=== PATIENT | female | born 1975 | race Caucasian/White ===

== ENCOUNTER 2017-04-13 10:51 | Emergency (ER) | payer OTHER ==
--- NOTE | ~2017-04-13 | CT2 ---
[facility] A Service of [facility] & [facility] RADIOLOGY TEXT RESULTS PATIENT: DEBBY CARMONA LOCATION: SED : 79 UNIT #: [id number] AGE: [address]: Cesar Murray MD SEX: F ORDER DR: [id number] [address] [address] [id number] MR#: [id number] Acc #: [id number] NAME: DEBBY CARMONA. : 1975 SEX: F STUDY DATE/TIME: 04/13/2017 13:44 UNIT: SED ROOM: STUDY DESCRIPTION: CT Abd and Pelv W Cont Attending Physician: Cesar Murray M.D. Ordering Physician: Cesar Murray M.D. Primary Care Physician: Jessica Cortes M.D. MEDICAL IMAGING REPORT This report is preliminary unless electronic signature is present. EXAM CT of the abdomen and pelvis with contrast HISTORY Patient has difficulty urinating. Blood in the stool Wednesday. TECHNIQUE Axial CT images were obtained from dome of the diaphragm through symphysis pubis following administration of oral and intravenous contrast material. This CT exam was performed with one or more of the following radiation dose reduction techniques: automatic exposure control, adjustment of mA and/or kV according to patient size, and iterative reconstruction. FINDINGS Patient has some scarring versus atelectasis at the right lung base. Stomach and proximal small bowel are within normal limits as are the adrenal glands, pancreas, spleen and liver and gallbladder. Adrenal glands and kidneys appear normal. There is no evidence mechanical bowel obstruction. Appendix is not visualized but no dilated tubular structure is seen within the right lower quadrant to suggest acute appendicitis. No free fluid or adenopathy is seen within the pelvis. Ovaries appear unremarkable for a 41-year-old woman with the exception of what may be a hemorrhagic cyst on the right ovary measuring about 1.2 x 1.8 cm. This patient has a round mass within the endometrial canal. This certainly could reflect a pedunculated fibroid extending into the endometrial canal, however I would suggest further evaluation with pelvic ultrasound on a non-emergent outpatient basis. Review of bony windows does not demonstrate any aggressive osseous abnormalities. STS. [facility] A Service of [facility] & [facility] RADIOLOGY TEXT RESULTS PATIENT: DEBBY CARMONA LOCATION: SED : 79 UNIT #: [id number] AGE: [address]: Cesar Murray MD SEX: F ORDER DR: IMPRESSION 1. Round mass identified within the endometrial canal. This certainly could reflect a pedunculated fibroid, however I would suggest further evaluation with pelvic ultrasound on a non-emergent outpatient basis. 2. Probable hemorrhagic cyst on the right ovary. 3. The appendix is not visualized but I do not see a dilated tubular structure or soft tissue stranding within the right lower quadrant to suggest acute appendicitis. Dictated by... Pham Parra M.D. THIS IS AN ELECTRONICALLY VERIFIED REPORT Pham Parra M.D. at 04/14/2017 5:03 PM AFF/pcl TD: 04/13/2017 22:31 JOB #: [id number] MEDICAL IMAGING REPORT Page 1 of 1
[~2017-04-13 10:51] MED LIST: AMITRYPTYLINE PO; AMOXICILLIN PO; ANUSOL-HC25 MG/SUPP RC; BACTRIM DS TABL1 TA1 PO; BENTYL10 MG DOB; CELEXA PO; CIPRO PO; CIPRO250 MG PO; CLEOCIN PO; DICLOFENAC; DICLOFENAC PO; EC-NAPROSYN500 MG PO; FIORICET 50-321 EACH PO; FLAGYL PO; FLAGYL250 M1 PO; FLEXERIL10 M1 PO; HYDROXYZINE HCL50 MG PO; IBUPROFEN PO; IBUPROFEN600 MG PO; KEFLEX PO; KEFLEX500 MG PO; KLONOPIN0.5 MG PO; LORTAB 5/500 TA1 TA2 PO; LORTAB 7.5-5001 TAB PO; MAGIC MOUTH WASH; MAGIC MOUTHWASH MM; MEDROL DOSEPAK4 MG PO; MEDROL PO; MOBIC PO; MOBIC15 MG PO; MOTRIN600 MG PO; MULTI-DAY VITAM1 TAB PO; NAPROSYN500 MG PO; NAPROXEN; NAPROXEN PO; NAPROXEN375 MG PO; NICOTINE TRANSD14 MG EXT; NO MEDICATIONS; NORFLEX100 M1 PO; PHENERGAN PO; PHENERGAN12.5 MG PO; PHENERGAN25 MG PO; PRILOSEC20 MG PO; PROTONIX PO; TRAMADOL HCL50 M2 PO; ULTRAM PO; VICODIN 5/1 TAB 5/50 PO; VICODIN 5/500 T1 TAB PO; VISTARIL PO; VOLTAREN50 MG PO; VOLTAREN75 MG PO; ZITHROMAX PO; ZOLOFT PO; ZOLOFT50 MG PO; ZYRTEC PO
[2017-04-13] MEDS ORDERED: ANTIBIOTIC (10:56)
[2017-04-13 11:37] LABS: URINE SOURCE CLEAN CATCH
[2017-04-13 11:39] LABS: BASOPHIL% 0.5 % (0-2.5); DIFF IND NO; EOSINOPHIL# 0.1 X10e3 (0-0.7); EOSINOPHIL% 0.9 % (0.0-7.0); HEMATOCRIT 41.4 % (35.0-45.0); HEMOGLOBIN 13.9 gm/dL (12.0-16.0); LYMPHOCYTE% 27.7 % (17.0-45.0); MEAN CELL VOLUME 96.6 FL (83-96); MEAN CORPUSCULAR HEMOGLOBIN 32.5 PG (28-34); MEAN CORPUSCULAR HGB CONC 33.6 g/dL (30-36); MEAN PLATELET VOLUME 8.3 FL (6.5-11.5); MONOCYTE# 0.6 X10e3 (0-1.0); NEUTROPHIL% 64.9 % (40-75); PLATELET COUNT 304 X10e3 (140-420); RED BLOOD COUNT 4.28 X10e (3.90-5.30); RED CELL DISTRIBUTION WIDTH 14.2 % (11.0-15.5); WHITE BLOOD COUNT 10.7 X10e3 (4.0-10.5)
[2017-04-13 11:50] LABS: URINE APPEARANCE SL CLOUDY; URINE BILIRUBIN NEG (NEG); URINE BLOOD TRACE-INTACT (NEG); URINE COLOR YELLOW; URINE GLUCOSE NEG (NORM); URINE KETONE NEG (NEG); URINE LEUKOCYTE ESTERASE NEG (NEG); URINE NITRATE NEG (NEG); URINE PH 5.5 (5-8); URINE PROTEIN TRACE (NEG); URINE SPECIFIC GRAVITY >=1.030 (1.003-1.035); URINE UROBILINOGEN 0.2 MG/DL (NORM)
[2017-04-13 11:58] LABS: MICRO INDICATED? YES
[2017-04-13 12:08] LABS: CULTURE INDICATED? YES; URINE BACTERIA 1+ (NEG); URINE RBC 0-2 /[HPF] (0-2); URINE SQUAMOUS EPITHELIAL CELL MANY /[HPF]
[2017-04-13 12:16] LABS: ALBUMIN SERUM 4.1 g/dL (3.5-5.0); BILIRUBIN, DIRECT 0.1 mg/dL (0.0-0.2); BILIRUBIN,INDIRECT 0.3 mg/dL (0.0-0.9); BILIRUBIN,TOTAL 0.4 mg/dL (0.2-2.0); BUN/CREATININE RATIO 12.85; CALCIUM SERUM 8.9 mg/dL (8.4-10.2); CREATININE SERUM 0.7 mg/dL (0.6-1.4); GLOM FILT RATE Estimated 109.1 mL/min (>60); POTASSIUM 3.9 mmol/L (3.5-5.1); PROTEIN TOTAL SERUM 6.8 g/dL (6.0-8.3)
== END 2017-04-13 15:00 | disposition home or self-care (01) ==
LOC: SED 10:51 → CED 10:51 → SED 11:47
PROVIDERS: Emergency Medicine
DX: K57.32 Diverticulitis of large intestine without perforation or abscess without bleeding (principal); D25.9 Leiomyoma of uterus, unspecified; F31.9 Bipolar disorder, unspecified; N83.202 Unspecified ovarian cyst, left side; G43.909 Migraine, unspecified, not intractable, without status migrainosus; F17.210 Nicotine dependence, cigarettes, uncomplicated
CPT/HCPCS: 36415; 74177; 80048; 80076; 81003; 82150; 82270; 83690; 84703; 85025; 87086; 96361; 96374; 96375; 99284; C9113; J1170; J2405; Q9967